=== PATIENT | female | born 1965 | race Caucasian/White ===

== ENCOUNTER → 2016-12-07 | Outpatient (CLI) | payer BC ==
--- NOTE | 2016-12-08 09:41 | RAD ---
EXAM: MAMMO PITA SCREENING BILATERAL HISTORY: Routine Screening. COMPARISON: 01/22/2015 Standard mammographic views are obtained of the bilateral breasts. Additionally three-dimensional tomographic images obtained. Implant displaced views were also obtained. This study was interpreted with the benefit of Computerized Aided Detection (CAD). FINDINGS: The breast parenchyma is heterogeneously dense, which could reduce sensitivity of mammography. Breast parenchyma level C.. There is no definite new suspicious spiculated mass or worrisome new cluster of microcalcifications. Bilateral breast implants are again seen. IMPRESSION: No definite new suspicious mass. BI-RADS CATEGORY: 2 BENIGN FINDING RECOMMENDED FOLLOW-UP: 6M 6 MONTH FOLLOW-UP PQRS compliance statement: Patient information was entered into a reminder system with a target due date for the next mammogram. Mammography is a sensitive method for finding small breast cancers, but it does not detect them all and is not a substitute for careful clinical examination. A negative mammogram does not negate a clinically suspicious finding and should not result in delay in biopsying a clinically suspicious abnormality. "Our facility is accredited by the [employer] Mammography Program."
== END | disposition home or self-care (01) ==
LOC: MAMMO 13:54
PROVIDERS: ATTEND Physician Assistant
DX: Z12.31 Encounter for screening mammogram for malignant neoplasm of breast (principal)
CPT/HCPCS: 77063; G0202; 77067

== ENCOUNTER → 2018-09-02 | Outpatient (CLI) | payer BC ==
--- NOTE | 2018-09-05 15:45 | RAD ---
EXAM: MAMMO PITA SCREENING BILATERAL HISTORY: routine screening evaluation. COMPARISON: Prior mammographic imaging 12/07/2016 01/22/2015 Bilateral full field craniocaudal and mediolateral oblique images were obtained using digital technique. This study was interpreted with the benefit of Computerized Aided Detection (CAD). Breast Density: The breast parenchyma is heterogeneously dense, which could reduce sensitivity of mammography. Breast parenchyma level C. FINDINGS: The parenchymal pattern appears stable. Bilateral retropectoral implants are seen. No suspicious masses, microcalcifications or architectural distortion is present to suggest malignancy in either breast. The visualized axillae are unremarkable. IMPRESSION: No mammographic evidence of malignancy. BI-RADS CATEGORY: 2 BENIGN FINDING(S) RECOMMENDED FOLLOW-UP: 12M 12 MONTH FOLLOW-UP Annual screening mammography is recommended, unless clinically indicated sooner based on symptoms or change in physical exam. PQRS compliance statement: Patient information was entered into a reminder system with a target due date for the next mammogram. Mammography is a sensitive method for finding small breast cancers, but it does not detect them all and is not a substitute for careful clinical examination. A negative mammogram does not negate a clinically suspicious finding and should not result in delay in biopsying a clinically suspicious abnormality. "Our facility is accredited by the [employer] Mammography Program." JENNYD
== END | disposition home or self-care (01) ==
LOC: MAMMO 13:25
PROVIDERS: ATTEND Physician Assistant
DX: Z12.31 Encounter for screening mammogram for malignant neoplasm of breast (principal)
CPT/HCPCS: 77063; 77067

== ENCOUNTER 2021-06-08 10:54 | Emergency (ER) | payer BC ==
[~2021-06-08] VITALS: Ht 167.6 cm; Wt 83.4 kg
[2021-06-08 11:43] VITALS: BP 167/103
--- NOTE | 2021-06-08 11:58 | PHYS DOC ---
General Adult EDM: Chief Complaint: ABDOMINAL PAIN HPI: HPI: Patient is a 55-year-old female who presents with nausea. Patient states that she has had nausea for a few months. Patient's been seeing Dr. Hodge and had a upper GI completed with no abnormalities found. Patient had an appointment this morning to get a PIPIDA scan done. Patient decided to cancel her appointment and come to the ER to have it done. Denies abdominal pain. Patient feels like her belly is distended and she has lots of "gas". Patient is having diarrhea with the nausea and vomiting. Patient is a heavy drinker and states that her nausea improves after drinking alcohol. Patient also reports relief after vomiting. Patient's been taking Zofran and Nexium with mild relief. Denies fever. History of alcoholism. Review of Systems: Review of Systems: ROS At least 10 ROS systems have been reviewed and are negative except as documented in the HPI. General: Negative except as outlined in HPI above. Skin: Negative except as outlined in HPI above. HEENT: Negative except as outlined in HPI above. Neck: Negative except as outlined in HPI above. Respiratory: Negative except as outlined in HPI above.. Cardiovascular: Negative except as outlined in HPI above. Abdomen: Negative except as outlined in HPI above. : Negative except as outlined in HPI above. Back/MSK: Negative except as outlined in HPI above. Neuro: Negative except as outlined in HPI above. Psych: Negative except as outlined in HPI above. Allergies: Allergies: Allergies Coded Allergies Type Severity Reaction Last Updated Verified Sulfa (Sulfonamide Antibiotics) Allergy Unknown 06/08/21 Yes Physical Exam: PE: Constitutional: Well developed, well nourished, no acute distress, non-toxic appearance. [] HENT: Normocephalic, atraumatic, bilateral external ears normal, oropharynx moist, no oral exudates, nose normal. [] Eyes: PERRLA, EOMI, conjunctiva normal, no discharge. [] Neck: Normal range of motion, no tenderness, supple, no stridor. [] Cardiovascular:Heart rate regular rhythm, no murmur [] Lungs & Thorax: Bilateral breath sounds clear to auscultation [] Abdomen: Bowel sounds normal, soft, distended, no tenderness Skin: Warm, dry, no erythema, no rash. [] Back: No tenderness, no CVA tenderness. [] Extremities: No tenderness, no cyanosis, no clubbing, ROM intact, no edema. [] Neurologic: Alert and oriented X 3, normal motor function, normal sensory function, no focal deficits noted. [] Psychologic: Affect normal, judgement normal, mood normal. [] EKG: EKG: [] Radiology/Procedures: Radiology/Procedures: [] Heart Score: C/O Chest Pain: No Risk Factors: Risk Factors: DM, Current or recent (<one month) smoker, HTN, HLP, family history of CAD, obesity. Risk Scores: Score 0 - 3: 2.5% MACE over next 6 weeks - Discharge Home Score 4 - 6: 20.3% MACE over next 6 weeks - Admit for Clinical Observation Score 7 - 10: 72.7% MACE over next 6 weeks - Early Invasive Strategies Course & Med Decision Making: Course & Med Decision Making Pertinent Labs and Imaging studies reviewed. (See chart for details) [] 55-year-old female presents with nausea. Patient's been seeing GI, Dr. Hodge,. Patient had a PIPIDA scan scheduled this morning and canceled it and came to the ER to have it completed. I explained to patient that she cannot get a PIPIDA scan done in the ER she would need to reschedule her appointment to be able to move forward with plan of care. Patient states that she took Zofran prior to arrival which gave her mild relief. I offered to give patient alternant nausea medication along with Pepcid. Patient refused and stated that nothing is help and so she does not want to take anything else. Patient is going to call and reschedule her scan to be completed. Advised patient to abstain from alcohol due to probably worsening symptoms. Discussed return precautions. Patient verbalizes understanding of discharge instructions. Dragon Disclaimer: Dragcesar Disclaimer: This electronic medical record was generated, in whole or in part, using a voice recognition dictation system. Departure Departure: Impression: Primary Impression: Nausea & vomiting Qualified Codes: R11.2 - Nausea with vomiting, unspecified Disposition: HOME / SELF CARE / HOMELESS Condition: STABLE Referrals: HENOK MACK MD (PCP) Patient Instructions: Nausea and Vomiting, [id number] Additional Instructions: Please follow-up with your GI doctor and reschedule your scan. Without this can be completed but will be difficult to move forward with your plan of care with Dr. Hodge. Continue taking your nausea medication. Try to abstain from alcoh ol. Return to the emergency room with worsening symptoms or concerns. EMERGENCY DEPARTMENT GENERAL DISCHARGE INSTRUCTIONS Thank you for coming to [facility] (ED) today and trusting us with you care. We trust that you had a positivie experience in our Emergency Department. If you wish to speak to the department management, you may call the director at . YOUR FOLLOW UP INSTRUCTIONS ARE FOLLOWS: 1. Do you have a private Doctor? If you do not have a private doctor, please ask for a resource list of physicians or clinics that may be able to assist you with follow up care. 2. The Emergency Physician has interpreted your x-rays. The X-Ray specialist will also review them. If there is a change in the findings, you will be notified in 48 hours when at all possible. 3. A lab test or culture has been done, your results will be reviewed and you will be notified if you need a change in treatment. ADDITIONAL INSTRUCTIONS AND INFORMATION: 1. Your care today has been supervised by a physician who is specially trained in emergency care. Many problems require more than one evaluation for a complete diagnosis and treatment. We recommend that you schedule your follow up appointment as recommended to ensure complete treatment of you illness or injury. If you are unable to obtain follow up care and continue to have a problem, or if your condition worsens, we recommend that you return to the ED. 2. We are not able to safely determine your condition over the phone nor are we able to give sound medical advice over the phone. For these safety reasons, if you call for medical advice we will ask you to come to the ED for further evaluation. 3. If you have any questions regarding these discharge instructions please call the ED at [phone]. SAFETY INFORMATION: In the interest of safety, wellness, and injury prevention; we encourage you to wear your sealbelt, if you smoke; quite smoking, and we encourage family to use a protective helmet for bicycling and other sporting events that present an increased risk for head injury. IF YOUR SYMPTOMS WORSEN OR NEW SYMPTOMS DEVELOP, OR YOU HAVE CONCERNS ABOUT YOUR CONDITION; OR IF YOUR CONDITION WORSENS WHILE YOU ARE WAITING FOR YOUR FOLLOW UP APPOINTMENT; EITHER CONTACT YOUR PRIMARY CARE DOCTOR, THE PHYSICIAN WHOSE NAME AND NUMBER YOU WERE GIVEN, OR RETURN TO THE ED IMMEDIATELY. JOSHUA JIMÉNEZ APRN Jun 08, 2021 11:58
== END 2021-06-08 12:11 | disposition home or self-care (01) ==
LOC: ER 10:54
DX: R11.2 Nausea with vomiting, unspecified (principal); R14.0 Abdominal distension (gaseous); Z88.2 Allergy status to sulfonamides
CPT/HCPCS: 99281

== ENCOUNTER → 2021-06-10 | Outpatient (CLI) | payer BC ==
[2021-06-08 11:43] VITALS: BP 167/103
[~2021-06-10] VITALS: Ht 167.6 cm; Wt 82.6 kg
[~2021-06-10] MED LIST: NORMAL SALINE IV ONE; SINCALIDE IV ONE
--- NOTE | 2021-06-10 11:02 | RAD ---
INDICATION: Reason: nausea, abdomen pain, bloating, vomiting for 6 weeks / Spl. Instructions: / His tory: COMPARISON: None. TECHNIQUE: 5.2mCi of Tc99m Choletec was injected intravenously followed by scintigraphic images of the abdomen. 1.7 mcg of CCK was then injected and a gallbladder ejection fraction was calculated. FINDINGS: Appropriate radiotracer clearance from the blood pool. Appropriate radiotracer excretion into the biliary tree. Prompt passage of contrast into the small bowel. Visualization of the gallbladder prior to the 60 minute time point. Gallbladder ejection fraction is 28 percent. IMPRESSION: * No scintigraphic evidence of acute cholecystitis or high grade biliary obstruction. * Gallbladder ejection fraction is decreased which can be seen with biliary dyskinesia. Electronically signed by: Eliecer Peralta MD (06/10/2021 10:59 AM) [id number]
== END ==
LOC: NM 07:51
PROVIDERS: ATTEND Internal Medicine Gastroenterology
DX: R11.0 Nausea (principal); R10.9 Unspecified abdominal pain; R14.0 Abdominal distension (gaseous); R11.10 Vomiting, unspecified
CPT/HCPCS: 78227; A9537; J2805